=== PATIENT | male | born 1980 | race Caucasian/White ===

== ENCOUNTER 2017-03-06 04:40 | Emergency (ER) | payer SELFPAY ==
[2017-03-06] MEDS ORDERED: SMZ/TMP 800/160MG TABLET. PO (05:15)
[2017-03-06] MEDS ORDERED: CEPHALEXIN 250 MG CAPSULE. PO (05:30)
[2017-03-06] MEDS ORDERED: BACITRACIN TOPICAL OINT 14GM TUBE. TP (05:30)
[2017-03-06] MEDS ORDERED: KETOROLAC 60 MG/2 ML INJ. IM (05:30)
[2017-03-06] MEDS ORDERED: diphenhydrAMINE HCL 25 MG CAPSULE PO (05:30)
== END 2017-03-06 05:24 | disposition home or self-care (01) ==
LOC: ER 04:40
DX: L03.114 Cellulitis of left upper limb (principal); F17.210 Nicotine dependence, cigarettes, uncomplicated
CPT/HCPCS: 99283

== ENCOUNTER 2017-03-07 12:15 | Emergency (ER) | payer SELFPAY | END 2017-03-07 14:15 | disposition left against medical advice (07) | LOC: ER 12:15 | DX: S60.562A Insect bite (nonvenomous) of left hand, initial encounter (principal); Z53.21 Procedure and treatment not carried out due to patient leaving prior to being seen by health care provider; W57.XXXA Bitten or stung by nonvenomous insect and other nonvenomous arthropods, initial encounter; Y93.89 Activity, other specified; Y92.89 Other specified places as the place of occurrence of the external cause; Y99.8 Other external cause status ==

== ENCOUNTER 2017-03-07 15:48 | Emergency (ER) | payer SELFPAY | END 2017-03-07 17:34 | disposition left against medical advice (07) | LOC: ER 17:34 | DX: T14.8XXA Other injury of unspecified body region, initial encounter (principal); Z53.21 Procedure and treatment not carried out due to patient leaving prior to being seen by health care provider; W57.XXXA Bitten or stung by nonvenomous insect and other nonvenomous arthropods, initial encounter; Y93.89 Activity, other specified; Y92.89 Other specified places as the place of occurrence of the external cause; Y99.8 Other external cause status ==

== ENCOUNTER 2017-03-07 19:01 | Emergency (ER) | payer SELFPAY | END 2017-03-07 19:20 | disposition left against medical advice (07) | LOC: ER 19:20 | DX: L03.113 Cellulitis of right upper limb (principal) | CPT/HCPCS: 99281 ==